=== PATIENT | female | born 1960 | race Caucasian/White ===

== ENCOUNTER 2017-02-13 15:54 | Observation (INO) | payer OTHER ==
[~2017-02-13] VITALS: Ht 165.1 cm; Wt 69.3 kg
[2017-02-13] MEDS ORDERED: MIDAZOLAM 1 MG/ML, 2ML ONE (16:08)
[2017-02-13] MEDS ORDERED: FENTANYL PF 250 MCG/5ML ONE (16:08)
[2017-02-13] MEDS ORDERED: LACTATED RINGERS 1,000 ML IV SCH (16:37)
[2017-02-13] MEDS ORDERED: HYDR1TAB14 PO (16:39)
[2017-02-13 16:42] VITALS: BP 125/83
[2017-02-13] MEDS ORDERED: ROPIvacaine/PF 0.5%, 20 ML ONE (17:26)
[2017-02-13] MEDS ORDERED: BUPIVACAINE/PF 0.25% ONE (17:38)
[2017-02-13] MEDS ORDERED: ONDANSETRON 2MG/ML, 2ML ONE (17:51)
[2017-02-13] MEDS ORDERED: PROPOFOL 10 MG/ML, 20ML ONE (17:51)
[2017-02-13] MEDS ORDERED: CEFAZOLIN 1,000 MG ONE (17:51)
[2017-02-13] MEDS ORDERED: DEXAMETHASONE 4 MG/ML, 1ML ONE (17:51)
[2017-02-13] MEDS ORDERED: ROCURONIUM 10 MG/ML ONE (17:51)
[2017-02-13] MEDS ORDERED: LABETALOL 5MG/ML, 20ML IV PRN (19:00)
[2017-02-13] MEDS ORDERED: OXYcodone 5 MG/5 ML ORAL.SOL UDC PO PRN (19:00)
[2017-02-13] MEDS ORDERED: HYDROmorphone 1 MG/ML, 1ML IV PRN (19:00)
[2017-02-13] MEDS ORDERED: MEPERIDINE/PF 25MG/0.5ML IVPush PRN (19:00)
[2017-02-13] MEDS ORDERED: PROMETHAZINE 25 MG/ML, 1ML IV PRN (19:00)
[2017-02-13] MEDS ORDERED: FENTANYL PF 100 MCG/2ML IV PRN (19:00)
[2017-02-13] MEDS ORDERED: ONDANSETRON 2MG/ML, 2ML IVPush PRN (19:00)
[2017-02-13] MEDS ORDERED: ACETAMINOPHEN 325 MG TABLET PO PRN (19:00)
[2017-02-13] MEDS ORDERED: ACETAMINOPHEN 325 MG/10.15 ML UDC ONE (20:49)
[2017-02-13] MEDS ORDERED: ACETAMINOPHEN 650 MG/20.3 ML UDC ONE (20:49)
[2017-02-13] MEDS ORDERED: OXYcodone 5 MG/5 ML ORAL.SOL UDC ONE (20:50)
[2017-02-13] MEDS ORDERED: HYDROmorphone 1 MG/ML, 1ML ONE (20:50)
[2017-02-13] MEDS ORDERED: ONDANSETRON 2MG/ML, 2ML IV PRN (22:30)
[2017-02-13] MEDS ORDERED: OXYcodone/APAP 5/325MG TABLET PO PRN (22:30)
[2017-02-13] MEDS ORDERED: morphine SULFATE 10 MG/ML, 1ML IV PRN (22:30)
[2017-02-13 23:53] VITALS: BP 114/62
[2017-02-14 03:56] VITALS: BP 103/71
[2017-02-14] MEDS ORDERED: OXYC5CAP4 PO (08:23)
== END 2017-02-14 09:20 | disposition home or self-care (01) ==
LOC: OR 15:54 → 4NOR 21:43 → OR 23:48
PROVIDERS: ADMIT Orthopaedic Surgery; ATTEND Orthopaedic Surgery
DX: S52.502A Unspecified fracture of the lower end of left radius, initial encounter for closed fracture (principal); S92.062A Displaced intraarticular fracture of left calcaneus, initial encounter for closed fracture; V89.2XXA Person injured in unspecified motor-vehicle accident, traffic, initial encounter; Y93.89 Activity, other specified; Y92.89 Other specified places as the place of occurrence of the external cause; Y99.8 Other external cause status
CPT/HCPCS: 25608; 28415; 73100; 73650; 76001; C1713; C1762; G0378; J0690; J1100; J2250; J2405; J2704; J2795; J3010; J3490; J7120